=== PATIENT | female | born 1970 | race Caucasian/White ===

== ENCOUNTER 2025-03-02 07:06 | Emergency (ER) | payer BC ==
[2025-03-02 07:47] LABS: BASOPHILS PERCENT AUTO 0.2 % (0.1-1.3); EOSINOPHILS PERCENT AUTO 0.1 % (0.0-5.4); HEMATOCRIT 44.5 % (34.3-46.0); HEMOGLOBIN 15.1 g/dL (11.2-15.5); IMMATURE GRAN ABSOLUTE AUTO 0.05 K/uL (0.00-0.23); IMMATURE GRAN PERCENT AUTO 0.5 % (0.0-0.7); LYMPHOCYTES ABSOLUTE AUTO 0.96 K/uL (0.8-3.3); MEAN CORPUSCULAR HEMOGLOBIN 30.7 pg (31.6-35.5); MEAN CORPUSCULAR HGB CONC 33.9 g/dL (31.6-35.5); MEAN CORPUSCULAR VOLUME 90.4 fL (81.4-99.0); MONOCYTES ABSOLUTE AUTO 0.39 K/uL (0.20-0.90); MONOCYTES PERCENT AUTO 3.7 % (3.3-12.6); NEUTROPHILS PERCENT AUTO 86.5 % (40.0-78.1); PLATELET COUNT,PLT 255 K/uL (130-375); RED BLOOD CELL COUNT 4.92 M/uL (3.77-5.24); WHITE BLOOD CELL COUNT,WBC 10.6 K/uL (3.2-11.0)
[2025-03-02] MEDS: Sodium Chloride 0.9% 1,000 ML IV ONE (07:50)
[2025-03-02] MEDS: HYDROmorphone 1 MG/ML Syringe IVPUSH ONE (07:51)
[2025-03-02] MEDS: Ondansetron 4 MG/2 ML SDV IVPUSH ONE (07:51)
[2025-03-02 07:52] LABS: BASOPHILS ABSOLUTE AUTO 0.02 K/uL (0.00-0.10); EOSINOPHILS ABSOLUTE AUTO 0.01 K/uL (0.00-0.40)
[2025-03-02 08:05] LABS: A/G RATIO 1.3 (1.2-2.2); ALANINE AMINOTRANSFERASE,ALT 20 U/L (12-78); ALBUMIN 3.8 g/dL (3.4-5.0); ALKALINE PHOSPHATASE 69 U/L (46-116); ASPARTATE AMNIOTRANSFERASE,AST 14 U/L (15-37); BILIRUBIN TOTAL 1.3 mg/dL (0.2-1.0); BLOOD UREA NITROGEN,BUN 13 mg/dL (7-18); CALCIUM 9.4 mg/dL (8.5-10.1); CARBON DIOXIDE,CO2 26 mmol/L (21-32); CHLORIDE,CL 101 mmol/L (100-108); CREATININE 0.8 mg/dL (0.6-1.0); EST CRCL DRUG DOSING (CG) 72.63 mL/min; ESTIMATED GFR 86 mL/min (>60); GLUCOSE RANDOM 135 mg/dL (74-106); PROTEIN TOTAL,TP 6.8 g/dL (6.4-8.2); SODIUM,NA 138 mmol/L (140-148)
[2025-03-02] MEDS: Sodium Chloride 0.9% 80 ML IV SCH (08:13)
[2025-03-02] MEDS: Iopamidol 612 MG/ML 100 ML Bottle IV ONE (08:13)
[2025-03-02 09:29] LABS: APPEARANCE,URINE CLEAR (CLEAR); BILIRUBIN,URINE NEGATIVE (NEGATIVE); COLOR,URINE YELLOW (YELLOW); GLUCOSE,URINE NEGATIVE (NEGATIVE); KETONES,URINE 40 mg/dL (NEGATIVE); LEUKOCYTE ESTERASE,URINE NEGATIVE (NEGATIVE); NITRITE,URINE NEGATIVE (NEGATIVE); OCCULT BLOOD,URINE MODERATE (NEGATIVE); PROTEIN,URINE NEGATIVE (NEGATIVE); UROBILINOGEN,URINE 0.2 EU/dL (0.2-1.0)
[2025-03-02 09:32] LABS: AMORPHOUS SEDIMENT,URINE RARE; BACTERIA,URINE NOT SEEN; EPITHELIAL CELLS,URINE NOT SEEN; MUCUS,URINE NOT SEEN; RBC,URINE 0-5 (0-5); WBC,URINE NOT SEEN (0-5)
[2025-03-02] MEDS: Ketorolac 30 MG/ML SDV IVPUSH ONE (09:59)
== END 2025-03-02 11:00 | disposition home or self-care (01) ==
LOC: JP.ED 07:06
DX: R10.31 Right lower quadrant pain (principal); Z86.16 Personal history of COVID-19
CPT/HCPCS: 36415; 74177; 80053; 81001; 83690; 85025; 96361; 96374; 96375; 99284; J1171; J1885; J2405; J7030; Q9967; 99283